=== PATIENT | female | born 1960 | race Caucasian/White ===

== ENCOUNTER → 2019-09-22 | Outpatient (CLI) | payer OTHER ==
[~2019-09-22] MED LIST: DIAMOX SEQUELS500 MG; DIAMOX SEQUELS500 MG PO; ESTROVEN ENERG1 EACH PO; IBUPROFEN 800800 M1 PO; PROAIR HFA8.5 GM INH; TESSALON PERLE100 MG PO
== END ==
LOC: RAD 09:15
DX: M17.11 Unilateral primary osteoarthritis, right knee (principal)

== ENCOUNTER 2020-10-15 21:34 | Emergency (ER) | payer OTHER ==
[~2020-10-15] VITALS: Ht 172.7 cm; Wt 136.1 kg
[2020-10-15 22:22] LABS: ANION GAP 18 mmol/L (7-16); BUN 21 mg/dL (7-18); CALCIUM 8.8 mg/dL (8.5-10.1); CHLORIDE 110 mmol/L (98-107); CO2 19 mmol/L (21-32); CREATININE 1.2 mg/dL (0.6-1.0); GLUCOSE 134 mg/dL (74-106); POTASSIUM 3.9 mmol/L (3.5-5.1); SODIUM 147 mmol/L (136-145)
[2020-10-15 22:28] LABS: ALBUMIN 3.8 g/dL (3.4-5.0); DIRECT BILIRUBIN < 0.1 mg/dL (<0.1-0.2); SGOT 32 U/L (15-37); SGPT 51 U/L (30-65); TOTAL BILIRUBIN 0.4 mg/dL (0.2-1.0); TOTAL PROTEIN 7.3 g/dL (6.4-8.2)
[2020-10-15 22:40] LABS: HEMATOCRIT 48.2 % (37.0-47.0); HEMOGLOBIN 15.7 gm/dL (12.0-15.0); MCH 28.3 pg (26.0-34.0); MCHC 32.6 g/dL (28.0-37.0); MCV 86.9 fL (80.0-100.0); PLATELET COUNT 181 thou/uL (150-400); RBC 5.54 mil/uL (4.20-5.00); RDW 13.8 % (10.5-14.5); WBC 17.8 thou/uL (4.0-11.0)
[2020-10-15 23:35] LABS: ABSOLUTE NEUTROPHILS 14.8 thou/uL (1.4-8.2)
[2020-10-15 23:36] LABS: PLATELET ESTIMATE NORMAL
[2020-10-16 00:05] LABS: URINE BILIRUBIN 1+ (Negative); URINE BLOOD NEGATIVE (Negative); URINE CLARITY SL CLOUDY; URINE COLOR YELLOW; URINE GLUCOSE-RANDOM* NEGATIVE (Negative); URINE KETONES 1+ (Negative); URINE LEUKOCYTES-REFLEX NEGATIVE (Negative); URINE NITRITE-REFLEX NEGATIVE (Negative); URINE PROTEIN (DIPSTICK) 1+ (Negative); URINE SPECIFIC GRAVITY >= 1.030 (1.005-1.035)
[2020-10-16 00:09] LABS: ICTOTEST (BILI CONFIRMATORY) Positive (Negative)
[2020-10-16 00:24] LABS: MUCUS 0-3 Light strn/LPF (None Seen); SQUAMOUS None Seen /LPF (0-3)
[2020-10-16 00:25] LABS: BACTERIA-REFLEX None Seen /HPF (None Seen); CRYSTALS None Seen /LPF (None Seen); HYALINE CASTS 0-3 Few /LPF (None Seen); URINE RBC None Seen /HPF (0-2); URINE WBC-REFLEX None Seen /HPF (0-5)
[2020-10-16] MEDS ORDERED: ZOFRAN ODT4 MG PO (02:30)
[2020-10-16 02:35] VITALS: BP 132/89
== END 2020-10-16 03:09 | disposition home or self-care (01) ==
LOC: ER 21:34
PROVIDERS: Emergency Medicine
DX: R11.2 Nausea with vomiting, unspecified (principal); R05 Cough; R06.02 Shortness of breath; R19.7 Diarrhea, unspecified; Z90.711 Acquired absence of uterus with remaining cervical stump; Z90.89 Acquired absence of other organs; Z79.899 Other long term (current) drug therapy; Z88.5 Allergy status to narcotic agent

== ENCOUNTER 2021-03-08 19:32 | Emergency (ER) | payer BC, OTHER ==
[~2021-03-08] VITALS: Ht 172.7 cm; Wt 158.8 kg
[~2021-03-08 19:32] MED LIST changes: +ZOFRAN ODT4 MG PO
[2021-03-08 20:28] LABS: ABSOLUTE NEUTROPHILS 4.4 thou/uL (1.4-8.2); BASOPHILS 1.1 % (0.0-2.0); EOSINOPHILS 5.8 % (0.0-3.0); HEMOGLOBIN 14.6 gm/dL (12.0-15.0); LYMPHOCYTES 26.2 % (24.0-44.0); MCH 29.2 pg (26.0-34.0); MCHC 33.1 g/dL (28.0-37.0); MCV 88.3 fL (80.0-100.0); PLATELET COUNT 197 thou/uL (150-400); POLYS 56.9 % (36.0-66.0); RBC 4.99 mil/uL (4.20-5.00); RDW 13.8 % (10.5-14.5); WBC 7.7 thou/uL (4.0-11.0)
[2021-03-08 20:30] LABS: ANION GAP 11 mmol/L (7-16); BUN 20 mg/dL (7-18); CALCIUM 8.6 mg/dL (8.5-10.1); CHLORIDE 109 mmol/L (98-107); CO2 23 mmol/L (21-32); CREATININE 1.1 mg/dL (0.6-1.0); GLUCOSE 99 mg/dL (74-106); POTASSIUM 3.8 mmol/L (3.5-5.1); SODIUM 143 mmol/L (136-145)
[2021-03-08 20:40] LABS: ALBUMIN 3.8 g/dL (3.4-5.0); SGOT 13 U/L (15-37); SGPT 17 U/L (14-59); TOTAL BILIRUBIN 0.4 mg/dL (0.2-1.0); TOTAL PROTEIN 6.9 g/dL (6.4-8.2); TROPONIN-I <0.06 ng/mL (<0.06)
[2021-03-08] MEDS ORDERED: ULTRAM 50MG TAB50 MG PO (22:04)
[2021-03-08] MEDS ORDERED: CYCLOBENZAPRINE5 MG PO (22:04)
[2021-03-08 23:37] VITALS: BP 125/70
--- NOTE | 2021-03-09 06:37 | EKG ---
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 : 1960 Requested By: Luther Celestin Order Number: [id number] MD: Olivier Combs Measurements Intervals [place] Rate: 83 P: 60 AR: 174 QRS: -44 QRSD: 102 T: 60 QT: 375 QTc: 441 Interpretive Statements Sinus rhythm Left axis deviation Abnormal R-wave progression, late transition Borderline T abnormalities, anterior leads Compared to ECG 12/31/2015 20:26:37 Left-axis deviation now present T-wave abnormality still present Electronically Signed On 03-09-2021 6:37:32 CDT by Olivier Combs [email or web address] <ELECTRONICALLY SIGNED> By: Olivier Combs MD, [facility] 03/09/21 0637 35 35 Olivier Combs MD, [facility] /EPI
== END 2021-03-08 23:39 | disposition home or self-care (01) ==
LOC: ER 19:32
PROVIDERS: Physician Assistant
DX: R07.89 Other chest pain (principal); Z90.711 Acquired absence of uterus with remaining cervical stump; Z90.89 Acquired absence of other organs; Z79.899 Other long term (current) drug therapy; Z88.5 Allergy status to narcotic agent; Z91.030 Bee allergy status

== ENCOUNTER → 2021-03-22 | Outpatient (CLI) | payer OTHER ==
[~2021-03-22] MED LIST changes: +CYCLOBENZAPRINE5 MG PO; +ULTRAM 50MG TAB50 MG PO
== END ==
LOC: CAT 08:12
PROVIDERS: ATTEND Family Medicine
DX: Z13.6 Encounter for screening for cardiovascular disorders (principal)